=== PATIENT | male | born 1930 | race Caucasian/White ===

== ENCOUNTER → 2018-03-11 | Outpatient (CLI) | payer MEDICARE, OTHER ==
--- NOTE | 2018-03-11 10:35 | RADIOLOGY REPORT (SQ) ---
EXAM DESCRIPTION: JOYCE SWALLOW COMPLETED DATE/TIME: 03/11/2018 9:10 am REASON FOR STUDY: DYSPHAGIA R13.10 DYSPHAGIA, UNSPECIFIED COMPARISON: None. TECHNIQUE: Videofluoroscopic swallowing examination was performed in conjunction with speech patholo gy. Videofluoroscopic imaging was obtained and reviewed and these are the findings: RADIATION DOSE: Fluoro time 2.28 minutes 1 images saved to PACS. LIMITATIONS: None FINDINGS: The patient was brought into the fluoro room and placed upright on a modified barium swall ow chair. The patient was then given multiple consistencies mixed with barium to swallow under live fluoroscopic video guidance. According to the Speech Pathologist there was no penetration or aspirat ion. Please refer to the speech pathology report for further details. IMPRESSION: NO EVIDENCE OF PENETRATION OR ASPIRATIONPLEASE SEE SPEECH PATHOLOGIST REPORT FOR OTHER F INDINGS AND RECOMMENDATIONS. COMMENT: None Quality ID [id number]: Final reports for procedures using fluoroscopy that document radiation exposure nicole william, or exposure time and number of fluorographic images (if radiation exposure indices are not avail able) TECHNICAL DOCUMENTATION: JOB ID: [id number] [employer]- All Rights Reserved Reading location - IP/workstation name: [facility]-RR
--- NOTE | 2018-03-11 13:42 | ST Modified Barium Swallow ---
Recommendation - Recommendations Recommendations: No diet change recommendations. Patient to use reduced rate of eating, alternating bites and sips. Mild pharyngeal dysphagia seen, no skilled intervention indicated at this time. Medical Diagnoses - Medical Diagnoses Medical Diagnosis Description & ICD-10 Code(s): dysphagia R13.10 Other Medical Diagnoses/Co-Morbidities: per family report: history of aortic aneurism, reflux, thyroid dysfunction ST Modified Barium Swallow - General Date: 03/11/18 Referring Physician: Catherine Conley PA-C Risks/Precautions: None Date of Onset: 02/28/17 - approximate onset date Reason for Referral: difficulty at meals - History History obtained from: Family - son present and acted as historian -: Medical - Per patient's son's report, the patient over the past year has demonstrated some difficulty at meals. He states that occasionally at meals the patient "looks like he's having a heart attack", says that he will "freeze up" and have watery eyes. This will resolve after a few seconds. No history of pneumonia or bronchitis. Patient currently resides in assisted living environment. Medications: per family report: thyroid medication - Functional Status Prior Functional Status: INDEPENDENT: feeding - independent Current Functional Limitations: feeding - intermittent choking spells - Subjective Patient/caregiver goal(s): safe swallow Cognitive-Linguistic Function: Mildly Impaired Speech Intelligibility: WNL Current Nutritional Means: PO Current PO diet: Regular Current symptoms: other - choking Pain: Patient reports, 0/5 - Objective Assessment: Upright, Left Lateral - Food Trials Used Food trials used: Thin liquids, Pureed The patient: Was Able to Self Feed - Assessment Oral prep: Normal Labial closure: Adequate Leakage: None Mastication: Adequate Lingual Movement: Normal Oral stage: Normal for this Procedure - Pharyngeal Stage Initiation of Pharyngeal Stage Reflex: Delayed Reflex Delay Time (Seconds): 9 - maximum delay of 9 seconds Decreased laryngeal elevation: No Reduced Velopharyngeal Closure: no Reduced pressure generation: No reduced tongue-based retraction: No Pre-swallow pooling in valleculae: Significant - with solid trials Pre-Swallow pooling in pyriforms: None Reduced Thyro-Hyoid approximation: No Reduced epiglottic excursion: No Reduced pharyngeal peristalsis/contraction: No Post-swallow residulas vallecular: None Post-Swallow residuals in pyriforms: None Reduced Cricopharyngeal opening: No - Fall Risk Assessment Medications/Conditions that increase fall risks include: Antidepressants, sedatives, anti-arrhythmic, diuretic, benzodiazipenes, neuroleptics. BP regulation problems, cardiac problems, balance or gait deficits, neurological problems. Fall Risk Actions Taken: No action needed - Behavioral Observations During evaluation process patient: was pleasant, was cooperative - Treatment / Educational Needs: Treatment/Education Needs: Treatment consisted of patient education on the role of the Speech Pathologist. Patient's plan of care and golas were communicated as well as scheduling and attendance policies. Recommendations for initial home program were shared. Patient demonstrated understanding and verbalized agreement. - Impression/Summary Laryngeal Penetration: Flash - inconsistently Consistency: Thin Tracheal Aspiration: no Patient presents with: Oral-Pharyngeal dysph., Mild-Moderate Risk of Aspiration: Mild Risk of nutritional compromise: WNL Evaluation and Findings: Patient presents with safe swallow for all trials. Significant delay for initiation of pharyngeal swallowing for solid trials, pudding and cracker. 8-9 second delay seen for solid trials with pooling in valleculae. No material fell into airway or pyriform sinus. Once swallow was initiated, no residue was seen. Mild risk of aspiration due to delayed swallow. - Recommendations Solid diet recommendations: Regular Liquid Diet Modification: Thin Strict aspiration precautions: Yes Pt/Family education and followup with MD: Yes Dysphagia therapy with COATING MACHINE FEEDER: no Recommended techniques: Fully Upright During Meal, Small Bites and Sips, Alternate Bites/Sips Information, Precautions and Recommendations: Patient (Written), Patient (Verbal ), Family Member (Written), Family Member (Verbal) - Time Total Time: 30 - Plan of Care Strategies to optimize patient understanding include:: ongoing assessment of educational needs, implementation of educational strategies, and re-education. - - -: Thank you for the opportunity to work with this patient and his/her family. Should you have any questions about this patient's plan or progress, I can be reached at [phone]. Charge G Code? - - -: Yes ST F.L. Impairment Category - Rationale Based On Rationale Based On: Clin Find., Obj Measures - Swallowing Current G8996: CI 1-19% Impaired Goal G8997: CI 1-19% Impaired Discharge G8998: CI 1-19% Impaired
== END ==
LOC: RAD 08:23
PROVIDERS: ATTEND Physician Assistant
DX: R13.10 Dysphagia, unspecified (principal); K21.9 Gastro-esophageal reflux disease without esophagitis
CPT/HCPCS: 74230; 92611; G8996; G8997; G8998

== ENCOUNTER 2018-03-25 09:38 | Emergency (ER) | payer MEDICARE, OTHER ==
--- NOTE | 2018-03-25 09:50 | ER Document Report ---
ED General - General Stated Complaint: LOW HEART RATE Time Seen by Provider: 03/25/18 09:49 Mode of Arrival: Medic Information source: Patient, Emergency Med Personnel TRAVEL OUTSIDE OF THE [place] IN LAST 30 DAYS: No - HPI Notes: 87-year-old male with dementia, hypothyroidism, hyperlipidemia, hypertension, A. fib, AAA from [facility] via EMS for concerns of confusion and hypertension although the patient's blood pressure was 137/80 by EMS with a heart rate of 53 which she is typically bradycardic due to being on Lopressor. Patient is not sure why he is at the emergency room currently. Denies any trauma or falls. None reported by [facility]. Daughter at bedside who states patient typically does get confused in the morning which is a common finding for him. Denies fevers, chills, chest pain,palpitations, shortness of breath, dyspnea, nausea, vomiting, diarrhea, abdominal pain, hematuria, blurred vision, double vision, loss of vision, speech changes, LH, dizziness, syncope, headaches, wheezing, ST, URI, neck pain, weakness, bowel or bladder dysfunction, saddle anesthesia, numbness or tingling in bilateral upper or lower extremities equally, muscle paralysis, weakness in bilateral upper or lower extremities equally or rash. Denies IV drug use. - Related Data Allergies/Adverse Reactions: meperidine HCl [From Demerol] Adverse Reaction (Unknown, Verified 08/26/14 01:05 ) Abnormal behavior naproxen [Naproxen] Adverse Reaction (Unknown, Verified 08/26/14 01:05) Abnormal behavior Past Medical History - General Information source: Patient, Emergency Med Personnel - Social History Smoking Status: Former Smoker Family History: Reviewed & Not Pertinent - Past Medical History Cardiac Medical History: Reports: Hx Hypercholesterolemia, Hx Hypertension Denies: Hx Atrial Fibrillation, Hx Congestive Heart Failure, Hx Coronary Artery Disease, Hx Heart Attack, Hx Peripheral Vascular Disease, Hx Heart Murmur Pulmonary Medical History: Denies: Hx Tuberculosis Neurological Medical History: Denies: Hx Seizures GI Medical History: Reports: Hx Gastroesophageal Reflux Disease Past Surgical History: Reports: Hx Bowel Surgery - Colostomy bag in 2000, Reversl colostomy. Denies: Hx Appendectomy, Hx Cholecystectomy, Hx Coronary Artery Bypass Graft, Hx Gastric Bypass Surgery, Hx Herniorrhaphy, Hx Pacemaker, Hx Tonsillectomy - Immunizations Hx Diphtheria, Pertussis, Tetanus Vaccination: Yes Review of Systems - Review of Systems Constitutional: See HPI EENT: No symptoms reported Cardiovascular: No symptoms reported Respiratory: No symptoms reported Gastrointestinal: No symptoms reported Genitourinary: No symptoms reported Male Genitourinary: No symptoms reported Musculoskeletal: No symptoms reported Skin: No symptoms reported Hematologic/Lymphatic: No symptoms reported Neurological/Psychological: See HPI Physical Exam - Vital signs Vitals: Temp Pulse Resp BP Pulse Ox 97.4 F 52 L 18 147/80 H 97 03/25/18 09:43 03/25/18 09:43 03/25/18 09:43 03/25/18 09:43 03/25/18 09:43 - Notes Notes: PHYSICAL EXAMINATION: GENERAL: Well-appearing, well-nourished and in no acute distress. HEAD: Atraumatic, normocephalic. EYES: Pupils equal round and reactive to light, extraocular movements intact, anisocoria R>L. conjunctiva are normal. ENT: Nares patent, oropharynx clear without exudates. Moist mucous membranes. NECK: Normal range of motion, supple without lymphadenopathy LUNGS: Breath sounds clear to auscultation bilaterally and equal. No wheezes rales or rhonchi. HEART: Regular rate and rhythm without murmurs ABDOMEN: Soft, nontender, nondistended abdomen. No guarding, no rebound. No masses appreciated. Musculoskeletal: Normal range of motion, no pitting or edema. No cyanosis. NEUROLOGICAL: Cranial nerves grossly intact. Normal speech, normal gait. Normal sensory, motor exams. PERRLA, EOMI. Full motor and sensory function throughout. Occup Therapist + 2 equal bilaterally in BUE. Tongue midline. No pronator drift. No ataxia. Neck with APROM. Raises eyebrows. Strength is 5 out of 5 in bilateral upper and lower extremities equally.Speaks in full sentences. No weakness on one side. Romberg gait steady able to walk straight line. Able to recall 5 objects. Does not know year only. PSYCH: Normal mood, normal affect. SKIN: Warm, Dry, normal turgor, no rashes or lesions noted. Course - Re-evaluation Re-evalutation: 03/25/18 10:32 Afebrile, vitals stable and in no distress 87-year-old male from [place], and presents EMS for evaluation of confusion and hypertension though the patient's blood pressure was 137/80 per EMS, patient's typical heart rate is 50/60 due to being on a beta-raquel. Patient denies any complaints and is not sure why he was brought to the ED. Daughter at bedside, she states sometimes in the morning he does get a little confused but then he becomes more alert, he does have a history of dementia. CBC unremarkable, CMP unremarkable. Cardiac enzymes within normal limits, EKG shows non-STEMI, bradycardia. Patient does have a heart score she has a 12-16.6% risk of an adverse cardiac event. Patient is asymptomatic for chest pain or shortness of breath, vitals remained stable. Chest x-ray did show a 3.5 cm mass, CT chest is verify 3.5 minutes left lower lobe which is concerning for malignancy. Patient is a former smoker. Daughter and patient both made aware of mass and they do understand that he needs to follow-up with a hemodialysis patient care specialist for further evaluation with biopsy. Advised to follow-up with primary care provider tomorrow. After performing a Medical Screening Examination, I estimate there is LOW risk for ACUTE GLAUCOMA, TEMPORAL ARTERITIS, MENINGITIS, acute coronary syndrome INCRANIAL HEMORRHAGE, or ISCHEMIC STROKE thus I consider the discharge disposition reasonable. I have reevaluated this patient multiple times and no significant life threatening changes are noted. The patient and I have discussed the diagnosis and risks, and we agree with discharging home with close follow-up with the understanding that symptoms and presentations can change. We also discussed returning to the Emergency Department immediately if new or worsening symptoms occur. We have discussed the symptoms which are most concerning (e.g., changing or worsening symptoms, new numbness or weakness, shortness of breath, bloody sputum vomiting, fever) that necessitate immediate return. - Vital Signs Vital signs: Temp Pulse Resp BP Pulse Ox 97.4 F 52 L 14 124/94 H 97 03/25/18 09:43 03/25/18 09:43 03/25/18 15:19 03/25/18 15:19 03/25/18 15:19 - Laboratory Result Diagrams: 03/25/18 10:32 03/25/18 10:32 Laboratory results interpreted by me: 03/25/18 03/25/18 03/25/18 10:32 10:32 12:46 RDW 16.2 H Plt Count 136 L Creatine Kinase 31 L Urine Protein 30 H - EKG Interpretation by Me Rate: Bradycardia Rhythm: NSR - artifact in ekg Discharge - Discharge Clinical Impression: Mass of left lung, Dementia Condition: Stable Disposition: HOME, SELF-CARE Instructions: Growth or Mass, Pending Workup (OM) Additional Instructions: Growth or Mass, Pending Workup During your evaluation, an abnormal growth or mass has been found. It will need further investigation. A ball of abnormal tissue is called a "mass." Not every mass is investigated in the same way. It depends on the size, the location, and whether there's more than one "lump." A mass might need additional x-rays, CT scan, or ultrasound. With some masses, we simply watch for signs that it's growing. Others require that we get a piece of the tissue for lab testing. We've done all the testing that we could do today. Be sure you understand what you're supposed to do as the next step. Most of the time, the mass will turnaround planner to be benign (innocent). In that case, it would only require removal if it's causing serious symptoms. But because cancer is one possible cause of a newly-found mass, it's important that you follow through with the doctor's recommendations. If you develop new symptoms while waiting for the testing, call your doctor immediately. Follow-up with sewing department supervisor, Dr. Walker, for further evaluation and as well as her primary care provider. Your labs today are normal. You experience any fever, chills, chest pain, shortness of breath dizziness, lightheadedness etc. return to the ED immediately. Return immediately for any new or worsening symptoms. Follow up with primary care provider, call tomorrow to make followup appointment. Referrals: MARCIN ESTRADA PA-C [NURSE PRACTITIONER] - Follow up in 3-5 days IAN WALKER MD [ACTIVE STAFF] - Follow up tomorrow
--- NOTE | 2018-03-25 10:21 | RADIOLOGY REPORT (SQ) ---
EXAM DESCRIPTION: CT HEAD WITHOUT COMPLETED DATE/TIME: 03/25/2018 10:10 am REASON FOR STUDY: anisocoria COMPARISON: 08/25/2014. TECHNIQUE: Axial images acquired through the brain without intravenous contrast. Images reviewed wi th bone, brain and subdural windows. Additional sagittal and coronal reconstructions were generated. Images stored on PACS. All CT scanners at this facility use dose modulation, iterative reconstruction, and/or weight based d osing when appropriate to reduce radiation dose to as low as reasonably achievable (ALARA). [facility]: Dose Right [facility]: CareDose [facility]: Dose Right [facility]: Teradose 4D [facility]: [employer] RADIATION DOSE: CT Rad equipment meets quality standard of care and radiation dose reduction techniq ues were employed. CTDIvol: 53.2 mGy. DLP: 1044 mGy-cm.mGy. LIMITATIONS: None. FINDINGS: VENTRICLES: Prominent. CEREBRUM: No masses. No hemorrhage. No midline shift. Areas of low density in the white matter mos t likely due to chronic micro-vascular ischemic change. No evidence for acute infarction. CEREBELLUM: No masses. No hemorrhage. No alteration of density. No evidence for acute infarction. EXTRAAXIAL SPACES: Age-related involutional change. No fluid collections. No masses. ORBITS AND GLOBE: No intra- or extraconal masses. Normal contour of globe without masses. CALVARIUM: No fracture. PARANASAL SINUSES: No fluid or mucosal thickening. SOFT TISSUES: No mass or hematoma. OTHER: No other significant finding. IMPRESSION: CHRONIC CHANGES OF ATROPHY AND MICROVASCULAR ISCHEMIA. NO ACUTE PROCESS. EVIDENCE OF ACUTE STROKE: NO. TECHNICAL DOCUMENTATION: JOB ID: [id number] Quality ID # [id number]: Final reports with documentation of one or more dose reduction techniques (e.g., Au tomated exposure control, adjustment of the mA and/or kV according to patient size, use of iterative reconstruction technique) 2010 [employer]- All Rights Reserved Reading location - IP/workstation name: [email or web address]
--- NOTE | 2018-03-25 10:22 | RADIOLOGY REPORT (SQ) ---
EXAM DESCRIPTION: CHEST SINGLE VIEW COMPLETED DATE/TIME: 03/25/2018 10:11 am REASON FOR STUDY: ams COMPARISON: None. EXAM PARAMETERS: NUMBER OF VIEWS: One view. TECHNIQUE: Single frontal radiographic view of the chest acquired. RADIATION DOSE: NA LIMITATIONS: None. FINDINGS: LUNGS AND PLEURA: 3.5 cm mass in the left lung, overlapped by the cardiac silhouette. Alok gs otherwise clear. No pleural effusion. No pneumothorax. MEDIASTINUM AND HILAR STRUCTURES: No masses. Contour normal. HEART AND VASCULAR STRUCTURES: Heart normal in size. Normal vasculature. BONES: No acute findings. HARDWARE: None in the chest. OTHER: No other significant finding. IMPRESSION: MASS IN THE LEFT LUNG. CT RECOMMENDED FOR FOLLOW-UP. NO ACUTE FINDINGS. TECHNICAL DOCUMENTATION: JOB ID: [id number] [employer]- All Rights Reserved Reading location - IP/workstation name: [email or web address]
[2018-03-25 10:54] LABS: ABSOLUTE EOSINOPHILS # (AUTO) 0.1 10^3/uL (0.0-0.6); ABSOLUTE LYMPHOCYTES (AUTO) 1.7 10^3/uL (0.5-4.7); ABSOLUTE MONOCYTES (AUTO) 0.7 10^3/uL (0.1-1.4); ABSOLUTE NEUT (AUTO) 4.1 10^3/uL (1.7-8.2); BASOPHILS % (AUTO) 0.5 % (0-2); EOSINOPHILS % (AUTO) 1.4 % (0-6); HEMATOCRIT 43.6 % (37.9-51.0); HEMOGLOBIN 14.8 g/dL (13.5-17.0); LYMPHOCYTES % (AUTO) 25.4 % (13-45); MEAN CORPUSCULAR HEMOGLOBIN 28.5 pg (27.0-33.4); MEAN CORPUSCULAR HGB CONC 33.9 g/dL (32.0-36.0); MEAN CORPUSCULAR VOLUME 84 fl (80-97); PLATELET COUNT 136 10^3/uL (150-450); RED BLOOD COUNT 5.18 10^6/uL (4.35-5.55); RED CELL DISTRIBUTION WIDTH 16.2 % (11.5-14.0); SEGMENTED NEUTROPHILS % (AUTO) 62.7 % (42-78); TOTAL CELLS COUNTED % (AUTO) 100 %; WHITE BLOOD COUNT 6.6 10^3/uL (4.0-10.5)
[2018-03-25 11:09] LABS: ALANINE AMINOTRANSFERASE 24 U/L (21-72); ALBUMIN 3.9 g/dL (3.5-5.0); ALKALINE PHOSPHATASE 89 U/L (38-126); ANION GAP 10 (5-19); ASPARTATE AMINO TRANSFERASE 20 U/L (17-59); BILIRUBIN,DIRECT 0.3 mg/dL (0.0-0.4); BLOOD UREA NITROGEN 16 mg/dL (7-20); CALCIUM 9.3 mg/dL (8.4-10.2); CARBON DIOXIDE 29 mmol/L (22-30); CHLORIDE 106 mmol/L (98-107); CREATINE KINASE 31 U/L (55-170); GLUCOSE 102 mg/dL (75-110); PHOSPHORUS 3.1 mg/dL (2.5-4.5); POTASSIUM 3.8 mmol/L (3.6-5.0); SODIUM 144.5 mmol/L (137-145); TOTAL PROTEIN 6.7 g/dL (6.3-8.2)
[2018-03-25 11:28] LABS: TROPONIN I < 0.012 ng/mL
[2018-03-25 13:35] LABS: APPEARANCE,URINE CLEAR; BILIRUBIN,URINE NEGATIVE (NEGATIVE); COLOR,URINE YELLOW; GLUCOSE, URINE NEGATIVE (NEGATIVE); KETONES,URINE NEGATIVE (NEGATIVE); LEUKOCYTE ESTERASE,URINE NEGATIVE (NEGATIVE); NITRITE,URINE NEGATIVE (NEGATIVE); PROTEIN,URINE 30 mg/dL (NEGATIVE); URINE SPECIFIC GRAVITY 1.013; UROBILINOGEN,URINE NEGATIVE mg/dL (<2.0)
--- NOTE | 2018-03-25 13:42 | RADIOLOGY REPORT (SQ) ---
EXAM DESCRIPTION: CT CHEST WITHOUT COMPLETED DATE/TIME: 03/25/2018 1:23 pm REASON FOR STUDY: lung mass seen on cxr COMPARISON: Chest x-ray dated 03/25/2018 and 08/25/2014. TECHNIQUE: CT scan performed of the chest without intravenous contrast. Images reviewed with lung, soft tissue and bone windows. Reconstructed coronal and sagittal MPR images reviewed. All images st ored on PACS. All CT scanners at this facility use dose modulation, iterative reconstruction, and/or weight based d osing when appropriate to reduce radiation dose to as low as reasonably achievable (ALARA). [facility]: Dose Right [facility]: CareDose [facility]: Dose Right [facility]: Teradose 4D [facility]: [employer] RADIATION DOSE: CT Rad equipment meets quality standard of care and radiation dose reduction techniq ues were employed. CTDIvol: 9.7 mGy. DLP: 369 mGy-cm. mGy. LIMITATIONS: No technical limitations. FINDINGS: LUNGS AND PLEURA: 3.5 cm mass in the left lower lobe medially posterior and inferior to th e hilum. Lungs otherwise clear. No pleural effusion. HILAR AND MEDIASTINAL STRUCTURES: No identified masses or abnormal nodes. No obvious aneurysm. HEART AND VASCULAR STRUCTURES: No aneurysm. No pericardial effusion. UPPER ABDOMEN: Irregular contour of the posterior cortex of the right kidney, not completely imaged. No other significant findings. Limited exam. THYROID AND OTHER SOFT TISSUES: No masses. No adenopathy. BONES: No significant finding. HARDWARE: None in the chest. OTHER: No other significant findings. IMPRESSION: 1. 3.5 CM MASS IN THE LEFT LOWER LOBE HIGHLY CONCERNING FOR MALIGNANCY. NO OTHER PULMONARY LESIONS A ND NO SIGNIFICANT ADENOPATHY IDENTIFIED IN THE CHEST. 2. IRREGULAR CONTOUR OF THE POSTERIOR CORTEX OF THE RIGHT KIDNEY. ON PREVIOUS ABDOMINAL CT ( 4) THIS WAS DUE TO A CORTICAL CYST AND PRESUMABLY REPRESENTS THE PREVIOUSLY SEEN CYST ALTHOUGH NOT CO MPLETELY IMAGED ON THE CURRENT STUDY. TECHNICAL DOCUMENTATION: JOB ID: [id number] Quality ID # [id number]: Final reports with documentation of one or more dose reduction techniques (e.g., Au tomated exposure control, adjustment of the mA and/or kV according to patient size, use of iterative reconstruction technique) 2010 [employer]- All Rights Reserved Reading location - IP/workstation name: [email or web address]
[2018-03-25 14:33] VITALS: BP 124/94
--- NOTE | 2018-03-26 | EKG REPORT ---
SEVERITY:- ABNORMAL ECG - ATRIAL FIBRILLATION LOW VOLTAGE IN FRONTAL LEADS BORDERLINE PROLONGED QT INTERVAL : Confirmed by: Analia Bravo MD 25-Mar-2018 23:59:01
== END 2018-03-25 15:18 | disposition home or self-care (01) ==
LOC: ER 09:38
DX: R91.8 Other nonspecific abnormal finding of lung field (principal); F03.90 Unspecified dementia, unspecified severity, without behavioral disturbance, psychotic disturbance, mood disturbance, and anxiety; E78.00 Pure hypercholesterolemia, unspecified; I10 Essential (primary) hypertension
CPT/HCPCS: 36415; 70450; 71045; 71250; 80053; 81001; 82550; 82553; 83735; 84100; 84484; 85025; 93005; 93010; 99285

== ENCOUNTER → 2018-04-11 | Outpatient (CLI) | payer MEDICARE, OTHER ==
--- NOTE | 2018-04-12 10:00 | RADIOLOGY REPORT (SQ) ---
EXAM DESCRIPTION: PET CT SKULL/THIGH COMPLETED DATE/TIME: 04/11/2018 9:47 pm REASON FOR STUDY: LUNG MASS R91.8 OTHER NONSPECIFIC ABNORMAL FINDING OF LUNG FIELD COMPARISON: None. RADIONUCLIDE AND DOSE: 11.2 mCi F18 FDG The route of agent administration: Intravenous FASTING BLOOD SUGAR: 95 mg/dl CONTRAST TYPE AND DOSE: No CT contrast given. TECHNIQUE: Blood glucose level was verified. Above dose of FDG was injected intravenously. 2-D seg mented attenuation correction images were obtained from the base of the skull to the midthighs. Nonc ontrast CT images were obtained for attenuation correction and fusion with emission images. CT image s were performed without oral or intravenous contrast and are not sensitive for parenchymal lesions. A series of overlapping emission PET images were obtained. Images reviewed [facility] by the radiologist. Images stored on PACS. LIMITATIONS: None. FINDINGS: HEAD AND NECK: No areas of abnormal metabolic activity in the soft tissues of the head and neck. CHEST: Hypermetabolic 3.5 cm mass left lower lobe 5.5 to 7.9 SUV. No other significant areas of abno rmal uptake in the chest. ABDOMEN AND PELVIS: No areas of abnormal metabolic activity in the abdomen or pelvis. Expected physi ologic activity is present in the genitourinary system and bowel. PROXIMAL LOWER EXTREMITIES: No areas of abnormal metabolic activity in the soft tissues of the lower extremities. BONES: No abnormal metabolic activity in the visualized skeleton. ADDITIONAL CT FINDINGS: 4 cm infrarenal aortic aneurysm. Cholelithiasis. Multiple anterior abdomina l wall hernias containing nondilated bowel. OTHER: No other significant findings. IMPRESSION: Hypermetabolic left lower lobe mass. No evidence of metastatic disease. TECHNICAL DOCUMENTATION: JOB ID: [id number] [employer]- All Rights Reserved Reading location - IP/workstation name: [facility]-[email or web address]
== END ==
LOC: RAD 18:23
PROVIDERS: ATTEND Internal Medicine Critical Care Medicine
DX: R91.8 Other nonspecific abnormal finding of lung field (principal)
CPT/HCPCS: 78815; A9552

== ENCOUNTER 2018-07-26 21:32 | Emergency (ER) | payer MEDICARE, OTHER ==
[2018-07-26] MEDS ORDERED: ACETAMINOPHEN 325 MG TABLET PO ONE (21:53)
--- NOTE | 2018-07-26 22:25 | RADIOLOGY REPORT (SQ) ---
EXAM DESCRIPTION: XR HIP 2 OR MORE VIEWS COMPLETED DATE/TME: 07/26/2018 00:00 CLINICAL HISTORY: 87 years, Male, unable to bear weight COMPARISON: None. NUMBER OF VIEWS: 3 TECHNIQUE: AP pelvis with 2 views of the right hip LIMITATIONS: None. FINDINGS: Osteopenia. Surgical clips within the pelvis. Vascular calcifications. Moderate degenerative change to the hips bilaterally. No radiographic evidence for acute fracture or dislocation. IMPRESSION: Osteopenia with moderate degenerative change 2010 [employer]- All Rights Reserved
--- NOTE | 2018-07-26 22:31 | RADIOLOGY REPORT (SQ) ---
EXAM DESCRIPTION: CT HEAD WITHOUT IV CONTRAST COMPLETED DATE/TME: 07/26/2018 00:00 CLINICAL HISTORY: 87 years, Male, fall COMPARISON: 03/25/2018 CT brain TECHNIQUE: 68 Images stored on PACS. All CT scanners at this facility use dose modulation, iterative reconstruction, and/or weight based dosing when appropriate to reduce radiation dose to as low as reasonably achievable (ALARA). [facility]: Dose Right [facility]: CareDose [facility]: Dose Right [facility]: Teradose 4D [facility]: [employer] LIMITATIONS: None. FINDINGS: The globes are intact. The paranasal sinuses and mastoid air cells are unremarkable. No displaced or depressed skull fracture. No intra or extra-axial hemorrhage. CT is limited for evaluation of acute infarct. No CT evidence for large or territorial acute infarct. No mass or midline shift. Diffuse age-appropriate atrophy. Hypodensities in the periventricular and subcortical white matter consistent with sequelae of small vessel ischemic change. 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 Atrophy. Small vessel ischemic change. TECHNICAL DOCUMENTATION: Quality ID # 436: Final reports with documentation of one or more dose reduction techniques (e.g., Automated exposure control, adjustment of the mA and/or kV according to patient size, use of iterative reconstruction technique) 2010 [employer]- All Rights Reserved
--- NOTE | 2018-07-26 22:42 | RADIOLOGY REPORT (SQ) ---
EXAM DESCRIPTION: CT CERVICAL SPINE WITHOUT IV CONTRAST COMPLETED DATE/TME: 07/26/2018 00:00 CLINICAL HISTORY: 87 years, Male, fall COMPARISON: None. TECHNIQUE: 222 Images stored on PACS. All CT scanners at this facility use dose modulation, iterative reconstruction, and/or weight based dosing when appropriate to reduce radiation dose to as low as reasonably achievable (ALARA). [facility]: Dose Right [facility]: CareDose [facility]: Dose Right [facility]: Teradose 4D [facility]: [employer] LIMITATIONS: None. FINDINGS: Evaluation of spinal canal contents limited due to CT technique. However, vertebral body height and alignment is preserved. No CT evidence for fracture or subluxation. The atlantoaxial space is preserved. The lateral masses are not displaced. Multilevel degenerative change throughout the cervical spine, greatest at the C5-6 level. Extraspinal soft tissues show vascular calcifications. Emphysematous changes in the visualized lung apices. IMPRESSION: Multilevel degenerative change without CT evidence for acute osseous abnormality. TECHNICAL DOCUMENTATION: Quality ID # 436: Final reports with documentation of one or more dose reduction techniques (e.g., Automated exposure control, adjustment of the mA and/or kV according to patient size, use of iterative reconstruction technique) 2010 [employer]- All Rights Reserved
--- NOTE | 2018-07-27 00:53 | ER Document Report ---
ED Fall - General Chief Complaint: Fall Stated Complaint: FALL/HIP INJURY Time Seen by Provider: 07/27/18 00:28 Notes: Patient is an 87-year-old male that comes emergency department for chief complaint of fall. Reportedly he lost his balance, tried to catch himself, scraped his left fingers on the wall, and then fell on his right hip and hit his head on the right frontal side. No loss of consciousness, vomiting, or increased confusion. Patient has some baseline dementia. He is on Pradaxa blood thinner. He is here with his daughter from home, he was visiting home from [employer]. Daughter states that patient fell at about 530, he has been ambulating since, he ate dinner, later he began complaining more and more of pain and that he felt like he could not get up without assistance. TRAVEL OUTSIDE OF THE [place] IN LAST 30 DAYS: No - Related data Allergies/Adverse Reactions: meperidine HCl [From Demerol] Adverse Reaction (Unknown, Verified 08/26/14 01:05 ) Abnormal behavior naproxen [Naproxen] Adverse Reaction (Unknown, Verified 08/26/14 01:05) Abnormal behavior Past Medical History - General Information source: Patient, Relative - Social History Smoking Status: Never Smoker Frequency of alcohol use: None Drug Abuse: None Lives with: [facility] Family History: Reviewed & Not Pertinent - Past Medical History Cardiac Medical History: Reports: Hx Hypercholesterolemia, Hx Hypertension Denies: Hx Atrial Fibrillation, Hx Congestive Heart Failure, Hx Coronary Artery Disease, Hx Heart Attack, Hx Peripheral Vascular Disease, Hx Heart Murmur Pulmonary Medical History: Denies: Hx Tuberculosis Neurological Medical History: Denies: Hx Seizures Renal/ Medical History: Denies: Hx Peritoneal Dialysis GI Medical History: Reports: Hx Gastroesophageal Reflux Disease Past Surgical History: Reports: Hx Bowel Surgery - Colostomy bag in 2000, Reversl colostomy. Denies: Hx Appendectomy, Hx Cholecystectomy, Hx Coronary Artery Bypass Graft, Hx Gastric Bypass Surgery, Hx Herniorrhaphy, Hx Pacemaker, Hx Tonsillectomy - Immunizations Hx Diphtheria, Pertussis, Tetanus Vaccination: Yes Review of Systems - Review of Systems Constitutional: No symptoms reported EENT: No symptoms reported Cardiovascular: No symptoms reported Respiratory: No symptoms reported Gastrointestinal: No symptoms reported Genitourinary: No symptoms reported Male Genitourinary: No symptoms reported Musculoskeletal: See HPI Skin: See HPI Hematologic/Lymphatic: No symptoms reported Neurological/Psychological: See HPI Physical Exam - Vital signs Vitals: Temp Pulse Resp BP Pulse Ox 98.2 F 61 18 136/64 H 94 07/26/18 21:56 07/26/18 21:56 07/26/18 21:56 07/26/18 21:56 07/26/18 21:56 - Notes Notes: GENERAL: Alert, interacts well. No acute distress. HEAD: Normocephalic, small abrasion over the right eyebrow, no swelling, no other trauma noted. EYES: Pupils equal, round, and reactive to light. Extraocular movements intact. ENT: Oral mucosa moist, tongue midline. Oropharynx unremarkable. Airway patent. Nares patent, no nasal septal hematoma, TM's intact. NECK: Full range of motion. Supple. Trachea midline. LUNGS: Clear to auscultation bilaterally, no wheezes, rales, or rhonchi. No respiratory distress. HEART: Regular rate and rhythm. No murmur ABDOMEN: Soft, non-tender. Non-distended. Bowel sounds present in all 4 quadrants. GENITOURINARY: Deferred EXTREMITIES: Moves all 4 extremities spontaneously. No edema, normal radial and dorsalis pedis pulses bilaterally. No cyanosis. Small skin abrasions over the third fourth and fifth digits dorsally on the left hand, normal range of motion of the hand, no tenderness over the hand, no swelling, normal cap refill and sensation. Upper and lower extremity exam is normal otherwise. BACK: no cervical, thoracic, lumbar midline tenderness. No saddle anesthesia, normal distal neurovascular exam. NEUROLOGICAL: Alert oriented to place, disoriented to some events. Normal speech. [cranial nerves II through XII grossly intact]. PSYCH: Normal affect, normal mood. SKIN: Warm, dry, normal turgor. No rashes or lesions noted. Course - Re-evaluation Re-evalutation: Patient does not have any bruising or even noted tenderness over the right hip although he does tell me that he has pain over the area. He is able to ambulate. X-ray with no fracture or acute abnormality. CT of the head performed because of head injury reported, he does have a small skin abrasion over the right eyebrow area, this shows no acute findings either of the head or neck. Patient has small skin abrasions over the left dorsal fingers as well. No other concerning abnormality's. Unremarkable vital signs. Patient is actually quite alert and conversational. He is at his baseline per daughter at bedside. Daughter unsure about the old stroke on imaging, given report as a result. Discussed with patient and daughter in detail the results, discussed recommendations and return precautions in detail as well. They state understanding and agreement. - Vital Signs Vital signs: Temp Pulse Resp BP Pulse Ox 99.5 F 71 20 142/68 H 93 07/27/18 02:08 07/27/18 02:08 07/27/18 02:08 07/27/18 02:08 07/27/18 02:08 Discharge - Discharge Clinical Impression: Right hip pain, Skin tear Fall Qualifiers: Encounter type: initial encounter Qualified Code(s): W19.XXXA - Unspecified fall, initial encounter Head injury Qualifiers: Encounter type: initial encounter Qualified Code(s): S09.90XA - Unspecified injury of head, initial encounter Condition: Stable Disposition: HOME, SELF-CARE Additional Instructions: CAT scan imaging of the head and neck do not show any new concerning finding. Imaging of the hip shows arthritis but no fracture or concerning new abnormality. Follow head injury precautions listed below. Give Tylenol up to every 4-6 hours if needed for pain. Skin tears will heal with time, current Xeroform dressing can remain for 2 days , afterwards cleaned, dressed, you can apply thin topical antibiotic. Return for any signs of infection. Return for any other concerning symptoms. Head Injury Precautions At this point, there is no evidence that your head injury is serious. Observation is necessary, however. Take only clear liquids for the first few hours, unless told otherwise by the doctor. If no pain medication was prescribed, you may take acetaminophen according to the directions on the bottle. Do not take any medication that may alter your level of alertness (unless you've discussed it with the doctor first) . Limit activity for the first 24 hours. Bed rest is best. During the first 24 hours, check to see approximately every two to three hours that the patient is easily arousable, responds normally, and can perform common tasks such as walking without difficulty. Contact your doctor or go to the hospital if any of the following things occur: Persistent vomiting, difficulty in arousing the patient, worsening or continued headache, or failure to improve as expected. Head injuries can cause symptoms that persist for a few days or even a few weeks. Referrals: IAN VELARDE MD [Primary Care Provider] - Follow up as needed
[2018-07-27 02:10] VITALS: BP 142/68
== END 2018-07-27 02:08 | disposition home or self-care (01) ==
LOC: ER 21:32
DX: S00.211A Abrasion of right eyelid and periocular area, initial encounter (principal); T14.8XXA Other injury of unspecified body region, initial encounter; S60.415A Abrasion of left ring finger, initial encounter; S60.417A Abrasion of left little finger, initial encounter; M25.551 Pain in right hip; W19.XXXA Unspecified fall, initial encounter; Y92.009 Unspecified place in unspecified non-institutional (private) residence as the place of occurrence of the external cause; F03.90 Unspecified dementia, unspecified severity, without behavioral disturbance, psychotic disturbance, mood disturbance, and anxiety; I10 Essential (primary) hypertension; Z79.02 Long term (current) use of antithrombotics/antiplatelets
CPT/HCPCS: 70450; 72125; 99284

== ENCOUNTER → 2018-09-17 | Outpatient (CLI) | payer MEDICARE, OTHER ==
[2018-09-17 08:32] LABS: ABSOLUTE EOSINOPHILS # (AUTO) 0.1 10^3/uL (0.0-0.6); ABSOLUTE LYMPHOCYTES (AUTO) 1.3 10^3/uL (0.5-4.7); ABSOLUTE MONOCYTES (AUTO) 0.7 10^3/uL (0.1-1.4); ABSOLUTE NEUT (AUTO) 4.8 10^3/uL (1.7-8.2); BASOPHILS % (AUTO) 0.5 % (0-2); EOSINOPHILS % (AUTO) 1.4 % (0-6); HEMATOCRIT 39.4 % (37.9-51.0); HEMOGLOBIN 13.3 g/dL (13.5-17.0); LYMPHOCYTES % (AUTO) 18.6 % (13-45); MEAN CORPUSCULAR HEMOGLOBIN 28.6 pg (27.0-33.4); MEAN CORPUSCULAR HGB CONC 33.9 g/dL (32.0-36.0); MEAN CORPUSCULAR VOLUME 84 fl (80-97); PLATELET COUNT 158 10^3/uL (150-450); RED BLOOD COUNT 4.67 10^6/uL (4.35-5.55); RED CELL DISTRIBUTION WIDTH 15.9 % (11.5-14.0); SEGMENTED NEUTROPHILS % (AUTO) 69.5 % (42-78); TOTAL CELLS COUNTED % (AUTO) 100 %
[2018-09-17 08:58] LABS: ALANINE AMINOTRANSFERASE 27 U/L (21-72); ALKALINE PHOSPHATASE 125 U/L (38-126); ANION GAP 8 (5-19); ASPARTATE AMINO TRANSFERASE 16 U/L (17-59); BILIRUBIN,DIRECT 0.3 mg/dL (0.0-0.4); BILIRUBIN,TOTAL 0.8 mg/dL (0.2-1.3); BLOOD UREA NITROGEN 16 mg/dL (7-20); CALCIUM 9.4 mg/dL (8.4-10.2); CARBON DIOXIDE 27 mmol/L (22-30); CHLORIDE 104 mmol/L (98-107); GLUCOSE 106 mg/dL (75-110); POTASSIUM 4.2 mmol/L (3.6-5.0); SODIUM 139.3 mmol/L (137-145); TOTAL PROTEIN 6.5 g/dL (6.3-8.2)
[2018-09-17 20:45] LABS: FREE T3 2.58 pg/mL (2.77-5.27); FREE T4 (FREE THYROXINE) 1.93 ng/dL (0.78-2.19)
[2018-09-17 20:58] LABS: THYROID STIMULATING HORMONE 0.46 uIU/mL (0.47-4.68)
== END ==
LOC: OD 07:46
PROVIDERS: ATTEND Physician Assistant
DX: E03.8 Other specified hypothyroidism (principal); I12.9 Hypertensive chronic kidney disease with stage 1 through stage 4 chronic kidney disease, or unspecified chronic kidney disease; N18.3 Chronic kidney disease, stage 3 (moderate)
CPT/HCPCS: 36415; 80053; 84439; 84443; 84481; 85025

== ENCOUNTER 2019-05-25 15:15 | Emergency (ER) | payer MEDICARE, OTHER ==
--- NOTE | 2019-05-25 15:52 | ER Document Report ---
ED General - General Chief Complaint: Altered Mental Status Stated Complaint: ALTERED MENTAL STATUS Primary Care Provider: MARCIN ESTARDA PA-C [Primary Care Provider] - Follow up as needed TRAVEL OUTSIDE OF THE [place] IN LAST 30 DAYS: No - HPI Notes: Patient is an 88-year-old male with baseline dementia and history of hypertension, GERD, AAA who presents from the residential for possible blood in the stool, possible A. fib, and the heart rate dropping into the 40s. Patient states that he is not sure why he is here and he feels fine. He is eating and drinking without difficulty. He is urinating normally. He has no concerns or complaints. Denies any headache, fever, head injury, neck pain, URI, sore throat, chest pain, palpitations, syncope, cough, shortness of breath, wheeze, dyspnea, abdominal pain, nausea/vomiting/diarrhea, urinary retention, dysuria, hematuria, numbness/tingling, saddle anesthesia, muscle paralysis/weakness, or rash. I spoke with Gracy from [facility]: The staff noticed that the patient was not tracking conversations as he normally can. He also noticed diarrhea with a foul odor with possible blood and they wanted him sent for evaluation for that and C. difficile testing. He has also been having lower heart rate than normal. - Related Data Allergies/Adverse Reactions: meperidine HCl [From Demerol] Adverse Reaction (Unknown, Verified 08/26/14 01:05) Abnormal behavior naproxen [Naproxen] Adverse Reaction (Unknown, Verified 08/26/14 01:05) Abnormal behavior Past Medical History - Social History Smoking Status: Unknown if Ever Smoked Family History: Reviewed & Not Pertinent Patient has suicidal ideation: No Patient has homicidal ideation: No - Past Medical History Cardiac Medical History: Reports: Hx Hypercholesterolemia, Hx Hypertension Denies: Hx Atrial Fibrillation, Hx Congestive Heart Failure, Hx Coronary Artery Disease, Hx Heart Attack, Hx Peripheral Vascular Disease, Hx Heart Murmur Pulmonary Medical History: Denies: Hx Tuberculosis Neurological Medical History: Denies: Hx Seizures Renal/ Medical History: Denies: Hx Peritoneal Dialysis GI Medical History: Reports: Hx Gastroesophageal Reflux Disease Past Surgical History: Reports: Hx Bowel Surgery - Colostomy bag in 2000, Rev ersl colostomy. Denies: Hx Appendectomy, Hx Cholecystectomy, Hx Coronary Artery Bypass Graft, Hx Gastric Bypass Surgery, Hx Herniorrhaphy, Hx Pacemaker, Hx Tonsillectomy - Immunizations Hx Diphtheria, Pertussis, Tetanus Vaccination: Yes Review of Systems - Review of Systems -: Yes All other systems reviewed and negative Physical Exam - Vital signs Vitals: Temp Pulse Resp BP Pulse Ox 98 F 54 L 16 121/64 98 05/25/19 15:38 05/25/19 15:38 05/25/19 15:38 05/25/19 15:38 05/25/19 15:38 - Notes Notes: PHYSICAL EXAMINATION: GENERAL: Well-appearing, well-nourished and in no acute distress. A&Ox2. Answers questions appropriately. HEAD: Atraumatic, normocephalic. EYES: Pupils equal round and reactive to light, extraocular movements intact, sclera anicteric, conjunctiva are normal. ENT: Nares patent and without discharge. oropharynx clear without exudates. No tonsilar hypertrophy or erythema. Moist mucous membranes. NECK: Normal range of motion, supple without lymphadenopathy LUNGS: Breath sounds clear to auscultation bilaterally and equal. No wheezes rales or rhonchi. HEART: Regular rate and rhythm without murmurs, rubs, gallops. ABDOMEN: Soft, nontender, nondistended abdomen. No guarding, no rebound. Normal bowel sounds present. No CVA tenderness bilaterally. Stool: provided in cup sample and is brown. Guiac negative. Musculoskeletal: FROM to passive/active. Strength 5+/5. Extremities: No cyanosis, clubbing, or edema b/l. Peripheral pulses 2+. Capillary refill less than 3 seconds. NEUROLOGICAL: Cranial nerves grossly intact. Normal speech, normal gait. Normal sensory, motor exams PSYCH: Normal mood, normal affect. SKIN: Warm, Dry, normal turgor, no rashes or lesions noted. Course - Re-evaluation Re-evalutation: 05/25/19 15:48 Pt's HR is fluctuating from 40's-50's currently. He has no complaints. Pt is nontoxic appearing. Vitals otherwise acceptable. Guiac negative. We will perform basic work up to further evaluate. BS is 143 with EMS. Cranial nerves grossly intact. Pt has baseline dementia. 05/25/19 17:45 Daughter is now at bedside and states that this is his baseline. 05/25/19 19:27 I have reviewed this with Dr. Torres who is in agreement with plan/dispo. Patient is an afebrile, well-hydrated, 88-year-old male who presents with right sided pneumonia and diarrhea. Vitals are acceptable without significant tachycardia, tachypnea, hypoxia, hypotension. PE is otherwise unremarkable. Patient's current heart rate is 70. Patient's abdomen is soft and nontender. He is nontoxic-appearing and is able to tolerate p.o. without difficulty. CBC and CMP acceptable. Cardiac enzymes and EKG were also acceptable. See chest x- ray result. CT of the head was negative for acute pathology. BNP was at or near baseline and patient does not have any edema noted. Urinalysis was unremarkable. Patient's C. difficile is negative and stool culture tests are pending. I will place him on doxycycline. Low suspicion/risk for acute intracranial pathology, acute appendicitis, bowel obstruction, acute cholecystitis, perforated diverticulitis, incarcerated hernia, pancreatitis, perforated ulcer, peritonitis, sepsis, severe dehydration, ACS, PE, Pneumothorax, Pericarditis, dissection, or other systemic emergent condition at this time. Patient/daughter aware that his condition can change from initial presentation and they need to monitor symptoms closely and seek medical attention if any acute changes. Conservative measures otherwise for symptoms. Recheck with PCM in 2-3 days. Consider consult with a certified industrial hygienist. Return to the ED with any worsening/concerning symptoms otherwise as reviewed in discharge. Daughter/pt in agreement. - Vital Signs Vital signs: Temp Pulse Resp BP Pulse Ox 98 F 54 L 16 121/64 98 05/25/19 15:38 05/25/19 15:38 05/25/19 15:38 05/25/19 15:38 05/25/19 15:38 - Laboratory Result Diagrams: 05/25/19 14:53 05/25/19 14:53 Laboratory results interpreted by me: 05/25/19 05/25/19 05/25/19 14:53 14:53 14:53 Hgb 12.1 L Hct 36.2 L MCH 26.7 L RDW 17.2 H PT 18.5 H Sodium 135.9 L BUN 27 H Creatinine 1.65 H Est GFR ( Amer) 48 L Est GFR (MDRD) Non-Af 39 L Glucose 129 H AST 15 L Creatine Kinase NT-Pro-B Natriuret Pep Total Protein 6.2 L 05/25/19 05/25/19 14:53 14:53 Hgb Hct MCH RDW PT Sodium BUN Creatinine Est GFR ( Amer) Est GFR (MDRD) Non-Af Glucose AST Creatine Kinase 32 L NT-Pro-B Natriuret Pep 3390 H Total Protein Discharge - Discharge Clinical Impression: Loose stools Pneumonia involving right lung Qualifiers: Pneumonia type: due to unspecified organism Lung location: unspecified part of lung Qualified Code(s): J18.9 - Pneumonia, unspecified organism Condition: Stable Disposition: HOME, SELF-CARE Additional Instructions: Maintain adequate fluid and food intake increase fiber in diet tylenol if needed Monitor for any worsening symptoms Make sure you are staying hydrated enough to urinate and have normal BM's Recheck with your PCM in 2-3 days Consider consult with Gastroenterology for ongoing/worsening symptoms Return to the ED with any worsening symptoms and/or development of fever, headache, chest pain, palpitations, syncope, shortness of breath, trouble breathing, abdominal pain, n/v/d, blood in stool/urine, weakness, or other worsening symptoms that are concerning to you. Prescriptions: Doxycycline Hyclate 100 mg PO BID #20 capsule Referrals: MARCIN ESTRADA PA-C [Primary Care Provider] - Follow up as needed
[2019-05-25 15:58] LABS: ABSOLUTE EOSINOPHILS # (AUTO) 0.2 10^3/uL (0.0-0.6); ABSOLUTE LYMPHOCYTES (AUTO) 1.1 10^3/uL (0.5-4.7); ABSOLUTE MONOCYTES (AUTO) 0.8 10^3/uL (0.1-1.4); ABSOLUTE NEUT (AUTO) 5.6 10^3/uL (1.7-8.2); BASOPHILS % (AUTO) 0.5 % (0-2); EOSINOPHILS % (AUTO) 2.4 % (0-6); HEMATOCRIT 36.2 % (37.9-51.0); HEMOGLOBIN 12.1 g/dL (13.5-17.0); LYMPHOCYTES % (AUTO) 13.9 % (13-45); MEAN CORPUSCULAR HEMOGLOBIN 26.7 pg (27.0-33.4); MEAN CORPUSCULAR HGB CONC 33.5 g/dL (32.0-36.0); MEAN CORPUSCULAR VOLUME 80 fl (80-97); PLATELET COUNT 229 10^3/uL (150-450); RED BLOOD COUNT 4.53 10^6/uL (4.35-5.55); RED CELL DISTRIBUTION WIDTH 17.2 % (11.5-14.0); SEGMENTED NEUTROPHILS % (AUTO) 73.2 % (42-78); TOTAL CELLS COUNTED % (AUTO) 100 %; WHITE BLOOD COUNT 7.7 10^3/uL (4.0-10.5)
[2019-05-25 16:13] LABS: INTERNATIONAL RATION (INR) 1.52; PROTHROMBIN TIME 18.5 SEC (11.4-15.4)
[2019-05-25 16:23] LABS: ALBUMIN 3.5 g/dL (3.5-5.0); ALKALINE PHOSPHATASE 112 U/L (38-126); ANION GAP 10 (5-19); ASPARTATE AMINO TRANSFERASE 15 U/L (17-59); BILIRUBIN,DIRECT 0.3 mg/dL (0.0-0.4); BILIRUBIN,TOTAL 0.6 mg/dL (0.2-1.3); BLOOD UREA NITROGEN 27 mg/dL (7-20); CARBON DIOXIDE 24 mmol/L (22-30); CHLORIDE 102 mmol/L (98-107); GLUCOSE 129 mg/dL (75-110); POTASSIUM 4.5 mmol/L (3.6-5.0); TOTAL PROTEIN 6.2 g/dL (6.3-8.2)
--- NOTE | 2019-05-25 16:38 | RADIOLOGY REPORT (SQ) ---
EXAM DESCRIPTION: CHEST SINGLE VIEW COMPLETED DATE/TIME: 05/25/2019 4:06 pm REASON FOR STUDY: bradycardia COMPARISON: 08/25/2014 EXAM PARAMETERS: NUMBER OF VIEWS: One view. TECHNIQUE: Single frontal radiographic view of the chest acquired. RADIATION DOSE: NA LIMITATIONS: None. FINDINGS: LUNGS AND PLEURA: Left perihilar opacity. Emphysematous change with chronic interstitial changes. No large effusion. No pneumothorax. MEDIASTINUM AND HILAR STRUCTURES: No masses. Contour normal. HEART AND VASCULAR STRUCTURES: Enlarged cardiac silhouette. Aortic atherosclerosis. BONES: No acute findings. HARDWARE: None in the chest. OTHER: No other significant finding. IMPRESSION: Left perihilar opacity, possibly infectious although underlying lesion is not excluded. Recommend follow-up chest radiograph or CT to ensure resolution. Stable large cardiac silhouette. TECHNICAL DOCUMENTATION: JOB ID: [id number] [employer]- All Rights Reserved Reading location - IP/workstation name: [email or web address]
--- NOTE | 2019-05-25 16:51 | RADIOLOGY REPORT (SQ) ---
EXAM DESCRIPTION: CT HEAD WITHOUT COMPLETED DATE/TIME: 05/25/2019 4:32 pm REASON FOR STUDY: baseline dementia, possible AMS COMPARISON: 07/26/2018 TECHNIQUE: Axial images acquired through the brain without intravenous contrast. Images reviewed wi th bone, brain and subdural windows. Additional sagittal and coronal reconstructions were generated. Images stored on PACS. All CT scanners at this facility use dose modulation, iterative reconstruction, and/or weight based d osing when appropriate to reduce radiation dose to as low as reasonably achievable (ALARA). [facility]: Dose Right [facility]: CareDose [facility]: Dose Right [facility]: Teradose 4D [facility]: [employer] RADIATION DOSE: CT Rad equipment meets quality standard of care and radiation dose reduction techniq ues were employed. CTDIvol: 53.2 mGy. DLP: 1097 mGy-cm.mGy. LIMITATIONS: None. FINDINGS: VENTRICLES: Prominent. CEREBRUM: No masses. No hemorrhage. No midline shift. Areas of low density in the white matter mos t likely due to chronic micro-vascular ischemic change. No evidence for acute infarction. CEREBELLUM: No masses. No hemorrhage. No alteration of density. No evidence for acute infarction. Unchanged old right cerebellar infarct. EXTRAAXIAL SPACES: Age-related involutional change. No fluid collections. No masses. ORBITS AND GLOBE: No intra- or extraconal masses. Normal contour of globe without masses. CALVARIUM: No fracture. PARANASAL SINUSES: Minimal mucosal thickening within the right maxillary sinus. Remaining sinuses ar e clear. SOFT TISSUES: No mass or hematoma. OTHER: No other significant finding. IMPRESSION: Stable chronic right cerebellar infarct. Additional stable chronic white matter changes and parenchymal atrophy without evidence of acute intracranial process. EVIDENCE OF ACUTE STROKE: NO. TECHNICAL DOCUMENTATION: JOB ID: [id number] Quality ID # [id number]: Final reports with documentation of one or more dose reduction techniques (e.g., Au tomated exposure control, adjustment of the mA and/or kV according to patient size, use of iterative reconstruction technique) 2010 [employer]- All Rights Reserved Reading location - IP/workstation name: [email or web address]
[2019-05-25 16:55] LABS: CREATINE KINASE MB 0.62 ng/mL (<4.55); NT PRO BNP 3390 pg/mL (<450)
[2019-05-25 17:02] LABS: TROPONIN I < 0.012 ng/mL
[2019-05-25 18:15] LABS: APPEARANCE,URINE SLIGHTLY-CLOUDY; BILIRUBIN,URINE NEGATIVE (NEGATIVE); COLOR,URINE YELLOW; GLUCOSE, URINE NEGATIVE (NEGATIVE); KETONES,URINE NEGATIVE (NEGATIVE); LEUKOCYTE ESTERASE,URINE NEGATIVE (NEGATIVE); NITRITE,URINE NEGATIVE (NEGATIVE); PROTEIN,URINE NEGATIVE (NEGATIVE); URINE SPECIFIC GRAVITY 1.018; UROBILINOGEN,URINE NEGATIVE mg/dL (<2.0)
[2019-05-25] MEDS ORDERED: DOXYCYCLINE HYCLATE 100 MG TABLET PO ONE (18:45)
[2019-05-25 19:06] LABS: C DIFFICILE GDH NEGATIVE (NEGATIVE)
[2019-05-25 20:11] VITALS: BP 119/62
--- NOTE | 2019-05-26 09:13 | EKG REPORT ---
SEVERITY:- ABNORMAL ECG - JUNCTIONAL ESCAPE RHYTHM VS AFIB REC REPEAT EKG : Confirmed by: Chaparrita Kern 26-May-2019 09:12:13
== END 2019-05-25 20:17 | disposition home or self-care (01) ==
LOC: ER 15:15
DX: J18.9 Pneumonia, unspecified organism (principal); R19.7 Diarrhea, unspecified; R41.82 Altered mental status, unspecified; F03.90 Unspecified dementia, unspecified severity, without behavioral disturbance, psychotic disturbance, mood disturbance, and anxiety; I10 Essential (primary) hypertension; R19.5 Other fecal abnormalities; R00.1 Bradycardia, unspecified
CPT/HCPCS: 93005; 99285; 36415; 87045; 87086; 87205; 82553; 82550; 85025; 85610; 87088; 80053; 81001; 84484; 87186; 87324; 87449; 83880; 71045; 70450; 93010; A9270